=== PATIENT | female | born 2000 | race Two or more races ===

== ENCOUNTER 2024-06-28 16:17 | Observation (INO) | payer MEDICAID, SELFPAY ==
[2024-06-28] VITALS (13 sets, daily range): BP systolic 113; BP diastolic 69; PULSE 75–113; RESP 18–99; TEMP 36.8; O2SAT 99–100; BMI 25.4
--- NOTE | 2024-06-28 16:31 | XR_ITS ---
Examination: Complete OB ultrasound greater than 14 weeks Date and time of exam: June 21 70,024 1646 hrs. Indications: Pelvic cramping beginning a few weeks ago Findings: Viable intrauterine single fetus with single amniotic sac presentation transverse Cardiac motion 136 BPM Placenta anterior grade 1 Umbilical cord insertion seen Amniotic fluid index 11 cm Cervix 4.1 cm Right ovary 2.3 x 3.2 cm arterial flow Left ovary 1.9 x 1.8 cm arterial flow. Composite estimated gestational age based on BPD, head circumference, abdominal circumference, femur length is 21 weeks 0 days. Survey of intracranial anatomy, spinal anatomy, abdominal anatomy, four-chamber heart performed with no abnormalities identified. Estimated weight 394.9 g Impression: Viable intrauterine gestation transverse presentation.
[2024-06-28 17:00] LABS: Collection Type, Urine Clean Catch
[2024-06-28 17:20] LABS: Bilirubin,Urine Negative (Negative); Blood,Urine Negative (Negative); Clarity,Urine Clear (Clear/Hazy); Color,Urine Yellow (Lt Yel-Yel); Glucose, Urine Negative (Negative); Ketones,Urine Negative (Negative); Leukocyte Esterase,Urine Negative (Negative); Nitrite,Urine Negative (Negative); Protein,Urine Negative (Neg - Trace); RBC,Urine 3 /hpf (0-3); Specific Gravity,Urine 1.019 (1.001-1.035); Squamous Epithelial Cell,Urine 2 /hpf (0-5); Urobilinogen,Urine Negative mg/dL (0.0-1.0); WBC,Urine 1 /hpf (0-5)
--- NOTE | 2024-06-28 18:26 | P.TNLD_ITS ---
Documentation for date of: 06/28/24 Hx Gestation Info Gestational Age (weeks): 21 Gestational Age (days): 0 Complaint Complaint Complaint: patient sent from ED for mild abdominal pain and no care , states she has LMP in early April 2024 Medical History Medical History Medical History: denies any problems attendant child activity Systems Assessment Systems Assessment Systems With in Normal Limits: Yes Contractions Evaluation Contractions Monitor Mode: External Contraction Frequency: none Sterile Vaginal Exam Cervical Dilatation: pelvic exam deferred On US cervix is 4.1 cm Vaginal Bleeding Vaginal Bleeding Amount: None Heart Monitoring Heart Rate Assessment Monitor Mode: External Assessment Comment: appropriate for gestational age Amniotic Membranes Amniotic Membranes Amniotic Membrane Status: Intact Social risk screen Social Risk Screening Observed or verbalized signs of abuse or neglect: No RN Notes Notes LD Triage Comment: U c/w 21 weeks and FHRate is 136bpm Patient given po hydration and cervix on US is 4.1 cm Patient managed remotely 21 weeks by US , no PNcare and abdominal pain resolved Disposition Dispostition: Home
== END 2024-06-28 18:05 | disposition home or self-care (01) ==
PROVIDERS: Admitting Provider Obstetrics & Gynecology; Visit Provider Obstetrics & Gynecology
DX: O26.892 Other specified pregnancy related conditions, second trimester (principal); R10.30 Lower abdominal pain, unspecified; M54.9 Dorsalgia, unspecified; J02.9 Acute pharyngitis, unspecified; O09.32 Supervision of pregnancy with insufficient antenatal care, second trimester; O32.2XX0 Maternal care for transverse and oblique lie, not applicable or unspecified; Z3A.21 21 weeks gestation of pregnancy
CPT/HCPCS: 59025; 59899; 76805; 81001

== ENCOUNTER 2024-11-02 20:22 | Inpatient (IN) | payer MEDICAID, SELFPAY ==
[2024-11-02] VITALS (11 sets, daily range): BP systolic 118–145; BP diastolic 69–108; PULSE 66–122; RESP 17–100; TEMP 36.7–37; O2SAT 82–99; BMI 28.1
--- NOTE | 2024-11-02 20:59 | ESHP_ITS ---
Documentation for date of: 11/02/24 OB Labor/Induct. HPI History of Present Illness Chief complaint: 24 y/o 39w 1d presents to L&D in early labor at 4 cm : 1 Para: 0 Term pregnancies: 0 pregnancies: 0 Living children: 0 History of Abortions: Spontaneous and Elective: 0 History of Vaginal deliveries: 0 History of sections: No History of : No JOSÉ MIGUEL: 11/08/24 Gestational Age (weeks): 39 Gestational Age (days): 1 History of present illness: 24 y/o 39w 1d presents to L&D in early labor at 4 cm vertex elza, membranes intact. GBS is neg. has been uncomplicated with the exception of anemia. EFW 3400g History of Present Dating criteria: LMP confirmed by 1st trimester US Adequate Care: Yes Ultrasounds: normal 1st trimester US and normal mid trimester US Obstetrical complications: none Labs Maternal Blood Type: O Pos Labs: Positive: Rubella Titre, Negative: RPR, Hepatitis B, HIV, Chlamydia, Gonorrhea and Group Beta Strep and Unknown: Herpes Type 1, Herpes Type 2 and Covid-19 Review of Systems Review of Systems Systems Reviewed: All systems reviewed, normal except as documented Past Medical History Surgical History SURGICAL: Negative Section Meds Home Medications and Allergies Home Medications ?Medication ?Instructions ?Recorded ?Confirmed ?Type vit no.95-ferrous tab PO 11/02/24 History fumarate 28 mg-folic acid 800 mcg tablet () Allergies Allergy/AdvReac Type Severity Reaction Status Date / Time No Known Allergies Allergy Verified 11/02/24 20:48 OB Exam Physical Exam Vital signs: Resp Pulse Ox 18 82 L 11/02/24 20:43 11/02/24 20:46 Constitutional Constitutional: mild distress (secondary to painful contractions) Routine HEENT Exam Head: Present normocephalic and atraumatic Eye: Present EOMI, PERRL and normal accommodation ENT: Present mucous membranes moist Routine Neck Exam Neck: Present full ROM Routine Respiratory Exam Respiratory: Absent respiratory distress Routine Cardiovascular Exam Cardiovascular: Present RRR Routine Abdominal Exam Abdominal: Present soft Comments: Gravid Uterus EFW 3400g Routine Exam External: Present normal urethra appearance; Absent lesions Detailed Labor and Delivery Exam Dilation (cm): 4 Effacement (%): 80 Cervix position: posterior station: -2 Consistency: soft Presentation: Vertex Membranes: intact Baseline heart rate: 125 monitor accelerations: 15x15 monitor decelerations: 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 (11-25) Contraction frequency (min): 2-4 Routine Extremities Exam Extremities: Present full ROM Routine Back/Spine/Pelvis Exam Back/Spine: Present full ROM Routine Skin Exam Skin: Present intact, dry and warm Routine Neurological Exam Neurological: Present alert, oriented X3 and CN II-XII intact Routine Psychiatric Exam Psychiatric: Present normal affect and normal thought process OB Assessment & Plan Assessment and Plan (1) Normal labor: Status: Acute (2) with 39 completed weeks gestation: Status: Acute Additional Plan Induction method: none Plan: augmentation, anticipate NVD and consult prn Additional Plan Comment: Routine admit orders Consult anesthesia for epidural Continuous EFM
[2024-11-02] MEDS: RINGERS LACTATED 1000 ML 1,000 ML 100 ML IV (21:14)
[2024-11-02 21:30] LABS: Basophils % (Auto) 0 % (0-2.5); Eosinophils # (Auto) 0.1 Thou/mm3 (0.0-0.5); Eosinophils % (Auto) 1 % (0-10); Hematocrit 33.6 % (36.0-46.0); Immature Granulocytes % (Auto) 1 % (0-0); Immature Granulocytes Auto 0.12 Thou/mm3 (0.00-0.00); Lymphocytes # (Auto) 1.9 Thou/mm3 (1.0-4.8); Lymphocytes % (Auto) 17 % (10-50); Mean Corpuscular HGB Conc 35.7 g/dl (31.0-37.0); Mean Corpuscular Hemoglobin 30.2 pg (25.0-35.0); Mean Corpuscular Volume 85 fL (80-100); Monocytes # (Auto) 0.7 Thou/mm3 (0.0-0.8); Monocytes % (Auto) 6 % (0-12); Neutrophils # (Auto) 8.1 Thou/mm3 (1.8-7.7); Neutrophils % (Auto) 74 % (37-80); Nucleated Red Blood Cell % 0 /100 WBC (0); Platelet Count 172 Thou/mm3 (140-440); Red Blood Count 3.97 Miln/mm3 (4.00-5.20); White Blood Count 10.8 Thou/mm3 (3.6-11.0)
[2024-11-02 22:12] LABS: Syphilis Nonreactive (Nonreactive)
[2024-11-02] MEDS: MINERAL OIL 30 ML UDC TOP (23:53)
[2024-11-02] MEDS: BENZO/LANO/ALOE (Dermoplast) 60 GM CAN 1 SPRAY TOP (23:53)
[2024-11-02] MEDS: OXYTOCIN in NS 20 units 20 UNIT/1,000 ML BAG 125 UNIT IV (23:55)
[2024-11-02] MEDS: LIDOCAINE HCL 1% 20 ML VIAL INFL (23:56)
[2024-11-03] VITALS (12 sets, daily range): BP systolic 105–135; BP diastolic 65–85; PULSE 72–97; RESP 16–20; TEMP 36.6–36.8; O2SAT 96–98
--- NOTE | 2024-11-03 00:10 | PD.LDDELS ---
Data (Delgado) Data Hx Section: No Maternal Blood Type: O Pos Rubella Titre: Positive RPR: Non-reactive Labs: Negative: RPR, Hepatitis B, HIV, Chlamydia, Gonorrhea and Group Beta Strep and Unknown: Herpes Type 1 and Herpes Type 2 : 1 Para: 0 Term: 0 : 0 Livin Abortions: Spontaneous & Theraputic: 0 Delivery Data (Delgado) Labor Data Initiation of labor: Spontaneous Induction/Augmentation Agent: None ROM date: 11/02/24 ROM time: 23:22 Amniotic membrane rupture type: Artificial Amniotic fluid description: Clear Delivery Data EDC: 11/08/24 EDC calculated by:: LMP/early US confirmation Onset of labor date: 11/02/24 Onset of labor time: 21:28 Complete dilation date: 11/02/24 Complete dilation time: 23:22 delivery date: 11/02/24 [place] delivery time: 23:50 Gestational age (weeks): 39 Gestational age (days): 1 Placenta delivery date: 11/02/24 Stage 1 total time: Labor - Stage 1 Duration 1 hours and 54 minutes Delivered by: Deborah Freeman Materials Planning Analyst at delivery: No Support person(s) at delivery: FOB Delivery Method Delivery: Vaginal Delivery Type: Primary Presentation: Vertex Position: OA Anesthesia Type Primary Anesthesia: Local Delivery Room Medications Other Intrapartum Medications: No Post Delivery Medications N/A: No Placenta Placenta Delivery: Spontaneous Placenta Cultures Obtained: No Placenta Sent for Examination: No Cord Sample: Cord Blood Obtained Episiotomy Episiotomy: None Lacerations #1: Vaginal: 1st degree Perineal repair Sutures used for repair: 3.0 Vicryl (CT) EBL Estimated blood loss (ml): 100 Umbilical Cord Umbilical Vessels: 3 Nuchal Cord: Not Applicable Body Cord: Not Applicable Additional Procedures Patient was admitted earlier in active labor at 5 to 6 cm. Patient progressed quickly and was complete later this evening. AROM performed clear fluids noted and after pushing for about 30 minutes had an of a viable female infant. 's anterior shoulder delivered with gentle downward traction subsequent deliver the posterior shoulder and the body without complications. Infant placed on mother's abdomen. Vigorous cry upon delivery. Cord was clamped. Cut by FOB. Cord blood obtained. Three-vessel cord noted. Placenta expelled spontaneously and intact. Patient sustained a first-degree vaginal laceration. Repaired using a 3-[address] suture. Perineum intact. Excellent hemostasis achieved after vigorous fundal massage and removal of clots from the posterior fornix. EBL 100. Sponge and needle count correct. Mother and baby stable, skin to skin and bonding in LDR. Data (Delgado) [place] Data [place]'s gender: Female
[2024-11-03] MEDS: TRANEXAMIC ACID 1,000 MG IVPB 1,000 MG/100 ML BAG 200 MG IV (00:27)
[2024-11-03 03:09] LABS: Amphetamine/Metham Scrn,Ur OB Negative (Negative); Benzoylecgonine Screen, Ur OB Negative (Negative); Opiate Screen,Urine OB Negative (Negative); THC Screen,Urine OB Negative (Negative)
--- NOTE | 2024-11-03 03:10 | PC.NURSE ---
0200: patient assisted oob to bathroom, patient abulated well,denies dizziness lightheadedness. patient unable to void. patient educated on po hydration . patient transfered to room 470 via ambulation with belonging and support persons. patient tolerated transfer well. poc reviewed with patient.all questions answered, patient verbalizes understanding.
[2024-11-03 07:07] LABS: Basophils % (Auto) 0 % (0-2.5); Eosinophils % (Auto) 0 % (0-10); Hematocrit 32.8 % (36.0-46.0); Hemoglobin 11.1 g/dL (12.0-16.0); Immature Granulocytes % (Auto) 1 % (0-0); Lymphocytes # (Auto) 1.5 Thou/mm3 (1.0-4.8); Lymphocytes % (Auto) 9 % (10-50); Mean Corpuscular HGB Conc 33.8 g/dl (31.0-37.0); Mean Corpuscular Hemoglobin 30.5 pg (25.0-35.0); Mean Corpuscular Volume 90 fL (80-100); Monocytes % (Auto) 6 % (0-12); Neutrophils % (Auto) 84 % (37-80); Nucleated Red Blood Cell % 0 /100 WBC (0); Platelet Count 178 Thou/mm3 (140-440); RDW Standard Deviation 47.6 fL (36.4-46.3); Red Blood Count 3.64 Miln/mm3 (4.00-5.20); White Blood Count 16.7 Thou/mm3 (3.6-11.0)
[2024-11-03] MEDS: ACETAMINOPHEN 325 MG TABLET 650 MG PO (09:20)
[2024-11-03] MEDS: DOCUSATE SOD 100 MG CAPSULE PO (09:21)
[2024-11-03] MEDS: IBUPROFEN TAB 400 MG TABLET 800 MG PO (11:52)
--- NOTE | 2024-11-03 12:31 | ESPR_ITS ---
Subjective Subjective Interval history: Pt is 24 y/o G1 now P1001 PPD #1 s/p by Deborah close to midnight. Pt is sitting up in bed eating lunch. She States her pain is well-controlled. She is breast and bottlefeeding. The father of the baby is at bedside. Patient denies heavy bleeding Exam Vital Signs Temp Pulse Resp BP Pulse Ox O2 Del Method 98.2 F 74 18 125/78 98 Room Air 11/03/24 11:40 11/03/24 11:40 11/03/24 11:40 11/03/24 11:40 11/03/24 11:40 11/03/24 11:40 Narrative Exam Patient is alert and oriented x 3 in no apparent distress sitting up eating lunch. Her fundus is not examined Objective Labs 11/03/24 05:40 Labs: Laboratory Results - last 24 hr 11/02/24 11/03/24 11/03/24 20:55 02:30 05:40 WBC 10.8 16.7 H D RBC 3.97 L 3.64 L Hgb 12.0 11.1 L Hct 33.6 L 32.8 L MCV 85 90 MCH 30.2 30.5 MCHC 35.7 33.8 RDW Std Deviation 45.0 47.6 H Plt Count 172 178 Neut % (Auto) 74 84 H Lymph % (Auto) 17 9 L [place] % (Auto) 6 6 Eos % (Auto) 1 0 Baso % (Auto) 0 0 Neut # (Auto) 8.1 H 14.0 H Lymph # (Auto) 1.9 1.5 [place] # (Auto) 0.7 1.0 H Eos # (Auto) 0.1 0.0 Baso # (Auto) 0.0 0.0 Immature Gran # (Auto) 0.12 H 0.10 H Absolute Nucleated RBC 0.00 0.00 Immature Gran % 1 H 1 H Nucleated RBC % 0 0 Urine Opiates Screen Negative U Amphetamin/Meth Scrn Negative U Cocaine Metab Screen Negative U Marijuana (THC) Screen Negative Syphilis Serology Nonreactive Blood Type O Positive Antibody Screen NEGATIVE Blood Bank Wristband ID Yes Assessment & Plan Problem List (1) Term delivered: Status: Acute Assessment and plan: Patient is doing well. Routine care. Follow-up with physical exam tomorrow. Probable discharge in the morning. Time Spent With Patient Time: Total time spent is greater than 50% in coordination of care (as documented) at patient's floor/unit and/or counseling patient:
[2024-11-03] MEDS: SIMETHICONE 80 MG CHEW PO (21:06)
[2024-11-04 04:10] VITALS: BP 130/78; PULSE 72; RESP 18; TEMP 36.8; O2SAT 98
[2024-11-04] MEDS: ACETAMINOPHEN 325 MG TABLET 650 MG PO (04:15)
--- NOTE | 2024-11-04 08:23 | ESDS_ITS ---
DS: Providers Provider Date of admission: 11/02/24 23:56 Primary care physician: Physician No Primary/Family Admitting Provider: Deborah Freeman CNM Attending Provider on Admission: Rex Pa MD Consults: 11/03/24 01:09 Referral Routine Comment: Attending Provider on DC: Rex Pa MD Discharging Provider: Rex Pa MD DS: Diagnosis Discharge Diagnosis (1) Term delivered: Status: Acute (2) with 39 completed weeks gestation: Status: Acute (3) Normal labor: Status: Acute Problem List Completed Was Problem List Reviewed/Reconciled?: Yes Summary/Hosp Course Brief History: 24 y/o 39w 1d presents to L&D in early labor at 4 cm vertex elza, membranes intact. GBS is neg. has been uncomplicated with the exception of anemia. EFW 3400g Peripartum Data Delivery Method: Normal Vaginal Delivery () Episiotomy Description: None complications: none Status at Discharge Cognitive/behavioral status at discharge: AMBULATING WITHOUT ASSISTANCE. BREAST FEEDING Functional status at discharge: independent ambulation Overall status at discharge: patient is back to baseline Time Spent with Patient Time attestation: Total time spent providing and/or coordinating discharge services: Time spent: Less than 30 minutes Specific discharge activities: AVOID HEAVY EXERTION Exam Vital Signs Temp Pulse Resp BP Pulse Ox O2 Del Method 98.3 F 72 18 130/78 98 Room Air 11/04/24 04:10 11/04/24 04:10 11/04/24 04:10 11/04/24 04:10 11/04/24 04:10 11/04/24 04:10 Discharge Plan Plan Patient Disposition: HOME (Self Care) Disposition Comment: AMBULATING WITHOUT ASSISTANCE. BREAST FEEDING Patient condition on transfer: Stable Prescriptions/Referrals Prescriptions/Med Rec: New ibuprofen 800 mg tablet 800 mg PO Q6H MDD 4 PRN (Reason: pain) Qty: 90 0RF lanolin 50 % ointment 1 applic topical TID PRN (Reason: skin irritation) Qty: 15 0RF docusate sodium [Colace] 100 mg capsule 100 mg PO BID Qty: 60 0RF acetaminophen 325 mg Tablet 650 mg PO Q6HR PRN (Reason: Patient rated pain of 3) Qty: 15 0RF ibuprofen 400 mg Tablet 800 mg PO Q8HR PRN (Reason: Pain Scale 4-6 (Moderate) Qty: 12 0RF Continued PNV cmb#95-ferrous fumarate-FA [] 28 mg iron- 800 mcg tablet PO Patient Comments: FRANCIE WILLY TABLETA POR V A ORAL TODOS LOS D FOR 30 DAYS Referrals: No Primary/Family,Physician [Primary Care Provider] - Patient/Caregiver Discharge Instructions Meds to Beds: No Discharge Activity: activity as tolerated Other Discharge Activity Instructions:: Follow-up with Deborah Freeman CNM in 3 weeks Education Materials: After Delivery Concerns, : Caring for Yourself Print Language: Tanzanian Stand Alone Forms: Kristy Award Info., Patient Portal Info Letter Discharge Order Discharge Orders: Discharge (Routine); Ordered 11/04/24 Ordered By: Rex Pa Planned Discharge Date 11/04/24
--- NOTE | 2024-11-04 08:27 | PD.LDDS ---
DS: Providers Provider Date of admission: 11/02/24 23:56 Primary care physician: Physician No Primary/Family Admitting Provider: Deborah Freeman CNM Attending Provider on Admission: Rex Pa MD Consults: 11/03/24 01:09 Referral Routine Comment: Attending Provider on DC: Rex Pa MD Discharging Provider: Rex Pa MD DS: Diagnosis Problem List Completed Was Problem List Reviewed/Reconciled?: Yes Summary/Hosp Course Brief History: 24 y/o 39w 1d presents to L&D in early labor at 4 cm vertex elza, membranes intact. GBS is neg. has been uncomplicated with the exception of anemia. EFW 3400g Peripartum Data Delivery Method: Normal Vaginal Delivery () Episiotomy Description: None Time Spent with Patient Time attestation: Total time spent providing and/or coordinating discharge services: Exam Vital Signs Temp Pulse Resp BP Pulse Ox O2 Del Method 98.3 F 72 18 130/78 98 Room Air 11/04/24 04:10 11/04/24 04:10 11/04/24 04:10 11/04/24 04:10 11/04/24 04:10 11/04/24 04:10 Discharge Plan Plan Patient Disposition: HOME (Self Care) Disposition Comment: AMBULATING WITHOUT ASSISTANCE. BREAST FEEDING Patient condition on transfer: Stable Prescriptions/Referrals Prescriptions/Med Rec: New ibuprofen 800 mg tablet 800 mg PO Q6H MDD 4 PRN (Reason: pain) Qty: 90 0RF lanolin 50 % ointment 1 applic topical TID PRN (Reason: skin irritation) Qty: 15 0RF docusate sodium [Colace] 100 mg capsule 100 mg PO BID Qty: 60 0RF acetaminophen 325 mg Tablet 650 mg PO Q6HR PRN (Reason: Patient rated pain of 3) Qty: 15 0RF ibuprofen 400 mg Tablet 800 mg PO Q8HR PRN (Reason: Pain Scale 4-6 (Moderate) Qty: 12 0RF Continued PNV cmb#95-ferrous fumarate-FA [] 28 mg iron- 800 mcg tablet PO Patient Comments: TOME WILLY TABLETA POR V A ORAL TODOS LOS D FOR 30 DAYS Referrals: No Primary/Family,Physician [Primary Care Provider] - Patient/Caregiver Discharge Instructions Meds to Beds: No Discharge Activity: activity as tolerated Other Discharge Activity Instructions:: Follow-up with Deborah Freeman CNM in 3 weeks Education Materials: After a Vaginal , After Delivery Concerns, : Caring for Yourself Print Language: Indonesian Stand Alone Forms: Kristy Award Info., Patient Portal Info Letter Discharge Order Discharge Orders: Discharge (Routine); Ordered 11/04/24 Ordered By: Rex Pa Planned Discharge Date 11/04/24
[2024-11-04] MEDS: DOCUSATE SOD 100 MG CAPSULE PO (08:29)
--- NOTE | 2024-11-04 08:29 | PD.LDDS ---
DS: Providers Provider Date of admission: 11/02/24 23:56 Primary care physician: Physician No Primary/Family Admitting Provider: Deborah Freeman CNM Attending Provider on Admission: Rex Pa MD Consults: 11/03/24 01:09 Referral Routine Comment: Attending Provider on DC: Rex Pa MD Discharging Provider: Rex Pa MD Anticipated date of discharge: 11/04/24 DS: Diagnosis Discharge Diagnosis (1) Term delivered: Status: Acute (2) with 39 completed weeks gestation: Status: Acute (3) Normal labor: Status: Acute Problem List Completed Was Problem List Reviewed/Reconciled?: Yes Summary/Hosp Course Brief History: 24 y/o 39w 1d presents to L&D in early labor at 4 cm vertex elza, membranes intact. GBS is neg. has been uncomplicated with the exception of anemia. EFW 3400g Peripartum Data Delivery Method: Normal Vaginal Delivery () Episiotomy Description: None Time Spent with Patient Time attestation: Total time spent providing and/or coordinating discharge services: Exam Vital Signs Temp Pulse Resp BP Pulse Ox O2 Del Method 98.3 F 72 18 130/78 98 Room Air 11/04/24 04:10 11/04/24 04:10 11/04/24 04:10 11/04/24 04:10 11/04/24 04:10 11/04/24 04:10 Discharge Plan Plan Patient Disposition: HOME (Self Care) Disposition Comment: AMBULATING WITHOUT ASSISTANCE. BREAST FEEDING Patient condition on transfer: Stable Prescriptions/Referrals Prescriptions/Med Rec: New ibuprofen 800 mg tablet 800 mg PO Q6H MDD 4 PRN (Reason: pain) Qty: 90 0RF lanolin 50 % ointment 1 applic topical TID PRN (Reason: skin irritation) Qty: 15 0RF docusate sodium [Colace] 100 mg capsule 100 mg PO BID Qty: 60 0RF acetaminophen 325 mg Tablet 650 mg PO Q6HR PRN (Reason: Patient rated pain of 3) Qty: 15 0RF ibuprofen 400 mg Tablet 800 mg PO Q8HR PRN (Reason: Pain Scale 4-6 (Moderate) Qty: 12 0RF Continued PNV cmb#95-ferrous fumarate-FA [] 28 mg iron- 800 mcg tablet PO Patient Comments: DHAVAL AGUILERA TABLETA POR V A ORAL TODOS LOS D FOR 30 DAYS Referrals: No Primary/Family,Physician [Primary Care Provider] - Patient/Caregiver Discharge Instructions Meds to Beds: No Discharge Activity: activity as tolerated Other Discharge Activity Instructions:: Follow-up with Deborah Freeman CNM in 3 weeks Education Materials: After Delivery Concerns, : Caring for Yourself Print Language: Icelandic Stand Alone Forms: Kristy Award Info., Patient Portal Info Letter Discharge Order Discharge Orders: Discharge (Routine); Ordered 11/04/24 Ordered By: Rex Pa Planned Discharge Date 11/04/24
[2024-11-04 08:30] VITALS: BP 126/78; PULSE 72; RESP 20; TEMP 36.6; O2SAT 98
--- NOTE | 2024-11-04 10:36 | PC.NURSE ---
Patient cleared by Cami in social services director
--- NOTE | 2024-11-04 10:49 | PC.SS ---
Danny JUAREZ met with patient face-to face to do initial assessment due to Late to Care referral. Student introduced herself, role in the agency, reason for visit. Patient appeared to be alert and oriented, to place time and situation. Patient Elisa Hernandez is a 24-Year-old Female admitted to the hospital to deliver her , daughter who was currently with patient, patient breast feeding at the time of encounter, her mother at bedside as well as father of the baby, Charles Hernandez. Patient reported that she resides at home with her aunt Prior to admission patient reported, she was independent with ADL?s. Patient reported that she receives, WIC and will be following up in regards to receiving food stamps and [employer]. Patient denies any history or current domestic violence or child welfare services involvement. danny JUAREZ addressed patient in regards to her Late to care, patient reported she had moved from [place] and arrived in [facility] on Jun 24. However followed up at [facility] right after. Patient has no HX: of Post- depression or Anxiety. ?The patient reports Nadine Da Silva was following her throughout her care. Patient reports child will be followed by Dr. Melgar once discharges. Patient reports she has all needed supplies for the upon discharge. Patient reports she will be formula and breast feeding the infant. Danny JUAREZ provided Community Resource guide and left at bedside.
== END 2024-11-04 14:30 | disposition home or self-care (01) | DRG 560 ==
LOC: S4SX 11-03 00:09 → S4NX 11-03 02:28
PROVIDERS: Admitting Provider Nurse Practitioner Women's Health; Visit Provider Obstetrics & Gynecology
DX: O99.02 Anemia complicating childbirth (principal); Z37.0 Single live birth; Z3A.39 39 weeks gestation of pregnancy; O70.0 First degree perineal laceration during delivery
CPT/HCPCS: 36415; 59025; 59409; 80307; 85025; 86780; 86850; 86900; 86901; J2590; J3490; J7120; A9270